=== PATIENT | male | born 1965 | race Caucasian/White ===

== ENCOUNTER 2018-11-30 10:26 | Inpatient (IN) | payer MEDICAID, OTHER ==
[~2018-11-30] VITALS: Ht 182.9 cm; Wt 107.1 kg
--- NOTE | 2018-11-30 10:44 | PHYS DOC ---
Adult General Chief Complaint Chief Complaint: SYNCOPE HPI HPI Patient is a 53 year old male with history of hypertension who presents to the ED today to be evaluated for a syncope episode. Patient was in the hospital in room 521 visiting the sister who is hospitalized for multiple issues including heart condition, he states he became shaky and believes passed out. He states the next thing he knew it they were wheeling him to the emergency room. Patient is complaining of nausea. Denies any dizziness. He appears diaphoretic. He states he has had similar symptoms a couple times before. (SANCHEZ ALLEN APRN) Review of Systems Review of Systems Constitutional: Denies fever or chills [] Eyes: Denies change in visual acuity, redness, or eye pain [] HENT: Denies nasal congestion or sore throat [] Respiratory: Denies cough or shortness of breath [] Cardiovascular: No additional information not addressed in HPI [] GI: Denies abdominal pain, nausea, vomiting, bloody stools or diarrhea [] : Denies dysuria or hematuria [] Musculoskeletal: Denies back pain or joint pain [] Integument: Denies rash or skin lesions [] Neurologic: Report syncope. Denies headache, focal weakness or sensory changes [] All other systems were reviewed and found to be within normal limits, except as documented in this note. (SANCHEZ ALLEN APRN) Current Medications Current Medications Current Medications Medications (Trade) Dose Ordered Sig/Ce Start Time Stop Time Status Last Admin Dose Admin Info (CONTRAST GIVEN -- Rx MONITORING) 1 each PRN DAILY PRN 11/30/18 11:30 12/02/18 11:29 Iohexol (Omnipaque 350 Mg/ml) 90 ml 1X ONCE 11/30/18 11:30 11/30/18 11:31 Meclizine HCl (Antivert) 25 mg 1X ONCE 11/30/18 11:15 11/30/18 11:16 DC 11/30/18 11:13 25 MG Ondansetron HCl (Zofran) 4 mg 1X ONCE 11/30/18 11:30 11/30/18 11:31 Sodium Chloride 1,000 ml @ 1,000 mls/hr 1X ONCE 11/30/18 12:00 11/30/18 12:59 (RUBY FLORIAN MD) Allergies Allergies Allergies Coded Allergies Type Severity Reaction Last Updated Verified No Known Drug Allergies 11/30/18 No (RUBY FLORIAN MD) Physical Exam Physical Exam Constitutional: Well developed, well nourished, no acute distress, non-toxic appearance. [] HENT: Normocephalic, atraumatic, bilateral external ears normal, oropharynx moist, no oral exudates, nose normal. [] Eyes: PERRLA, EOMI, conjunctiva normal, no discharge. [] Neck: Normal range of motion, no tenderness, supple, no stridor. [] Cardiovascular:Appears diaphoretic. Heart rate regular rhythm, no murmur [] Lungs & Thorax: Bilateral breath sounds clear to auscultation [] Abdomen: Bowel sounds normal, soft, no tenderness, no masses, no pulsatile masses. [] Skin: Warm, dry, no erythema, no rash. [] Back: No tenderness, no CVA tenderness. [] Extremities: No tenderness, no cyanosis, no clubbing, ROM intact, no edema. [] Neurologic: Alert and oriented X 3, normal motor function, normal sensory function, no focal deficits noted. Cranial nerves II-XII intact Psychologic: Affect normal, judgement normal, mood normal. [] (SANCHEZ ALLEN APRN) Current Patient Data Vital Signs Vital Signs Date Time Temp Pulse Resp B/P (MAP) Pulse Ox O2 Delivery O2 Flow Rate FiO2 11/30/18 10:47 98.1 67 16 146/75 (98) 99 Room Air 98.1 (RUBY FLORIAN MD) Lab Values Laboratory Tests Test 11/30/18 10:34 11/30/18 10:40 Glucose (Fingerstick) 148 mg/dL (70-99) H White Blood Count 15.6 x10^3/uL (4.0-11.0) H Red Blood Count 4.69 x10^6/uL (4.30-5.70) Hemoglobin 15.4 g/dL (13.0-17.5) Hematocrit 44.2 % (39.0-53.0) Mean Corpuscular Volume 94 fL (79-100) Mean Corpuscular Hemoglobin 33 pg (25-35) Mean Corpuscular Hemoglobin Concent 35 g/dL (31-37) Red Cell Distribution Width 12.7 % (11.5-14.5) Platelet Count 313 x10^3/uL (140-400) Neutrophils (%) (Auto) 61 % (31-73) Lymphocytes (%) (Auto) 25 % (24-48) Monocytes (%) (Auto) 12 % (0-9) H Eosinophils (%) (Auto) 2 % (0-3) Basophils (%) (Auto) 1 % (0-3) Neutrophils # (Auto) 9.5 x10^3uL (1.8-7.7) H Lymphocytes # (Auto) 3.9 x10^3/uL (1.0-4.8) Monocytes # (Auto) 1.8 x10^3/uL (0.0-1.1) H Eosinophils # (Auto) 0.3 x10^3/uL (0.0-0.7) Basophils # (Auto) 0.2 x10^3/uL (0.0-0.2) Prothrombin Time 12.1 SEC (11.7-14.0) Prothrombin Time INR 0.9 (0.8-1.1) Sodium Level 135 mmol/L (136-145) L Potassium Level 3.5 mmol/L (3.5-5.1) Chloride Level 98 mmol/L (98-107) Carbon Dioxide Level 22 mmol/L (21-32) Anion Gap 15 (6-14) H Blood Urea Nitrogen 11 mg/dL (8-26) Creatinine 0.9 mg/dL (0.7-1.3) Estimated GFR (Cockcroft-Gault) 87.6 BUN/Creatinine Ratio 12 (6-20) Glucose Level 151 mg/dL (70-99) H Calcium Level 8.7 mg/dL (8.5-10.1) Magnesium Level 1.9 mg/dL (1.8-2.4) Total Bilirubin 0.7 mg/dL (0.2-1.0) Aspartate Amino Transferase (AST) 20 U/L (15-37) Alanine Aminotransferase (ALT) 30 U/L (16-63) Alkaline Phosphatase 88 U/L (46-116) Troponin I Quantitative < 0.017 ng/mL (0.000-0.055) Total Protein 8.0 g/dL (6.4-8.2) Albumin 3.8 g/dL (3.4-5.0) Albumin/Globulin Ratio 0.9 (1.0-1.7) L Lipase 173 U/L (73-393) Laboratory Tests 11/30/18 10:40 Laboratory Tests 11/30/18 10:40 (RUBY FLORIAN MD) EKG EKG 10:[address] Florian sinus rhythm with non specific ST changes in V2 with no Ischemic changes. [] Repeat EKG at 11:[address] Florian sinus rhythm with non specific ST changes in V2 with no Ischemic changes. [] (SANCHEZ ALLEN APRN) Radiology/Procedures Radiology/Procedures []PROCEDURE: CT HEAD WO CONTRAST CT HEAD WO CONTRAST Indication: Syncope. Exposure: One or more of the following individualized dose reduction techniques were utilized for this examination: 1. Automated exposure control 2. Adjustment of the mA and/or kV according to patient size 3. Use of iterative reconstruction technique. Technique: Standard imaging without intravenous contrast. No evidence of acute intracranial, mass effect, midline shift or abnormal extra-axial fluid collection. Ventricles and sulci are symmetric. Kamara-white matter distinction is intact. The orbits are symmetric. No prominent scalp swelling. The partially visualized sinuses appear clear. No evidence of acute skull abnormality. IMPRESSION: No evidence of acute intracranial hemorrhage. If there is concern for infarction, consider MR brain. Electronically signed by: Jim Clinton MD (11/30/2018 11:41 AM) [facility] DICTATED and SIGNED BY: JIM CLINTON MD DATE: 11/30/18 1141 PROCEDURE: PORTABLE CHEST 1V PORTABLE CHEST 1V History: Syncope.. No comparison. Heart size is not enlarged. No evidence of pneumothorax, pleural effusion or consolidating infiltrate. There are diffuse interstitial markings throughout both lungs. No lobar consolidation. IMPRESSION: Diffuse interstitial opacities, may be chronic fibrosis. Component of mild edema or pneumonitis difficult to exclude without prior studies. No lobar consolidation. Electronically signed by: Jim Clinton MD (11/30/2018 11:18 AM) [facility] DICTATED and SIGNED BY: JIM CLINTON MD DATE: 11/30/18 1118 PROCEDURE: CT ANGIOGRAPHY CHEST CT ANGIOGRAPHY CHEST Indication: Syncope. Diaphoretic. . Technique: After intravenous contrast administration, CT imaging was performed of the chest. MIP reconstructions were obtained. Exposure: One or more of the following individualized dose reduction techniques were utilized for this examination: 1. Automated exposure control 2. Adjustment of the mA and/or kV according to patient size 3. Use of iterative reconstruction technique. Findings: No evidence of a pulmonary embolism. Mild pulsatility artifact at the ascending aorta. No evidence of aortic aneurysm or definite dissection. Proximal great vessels are patent. Thyroid is partially seen and appears symmetric. No significant pathologic lymph node enlargement. No pericardial effusion. No evidence of pleural effusion. There is mild linear markings lungs, particularly the dependent right lung, compatible with mild atelectasis or fibrosis. Slightly more nodular region in the posterior right lung on axial image 51, measures about. Small peripheral lucencies at the posterior upper lobes bilaterally likely mild paraseptal emphysema versus honeycombing. Trachea and central airways are grossly patent. There are degenerative changes of the spine. Vertebral body height and alignment are maintained. Limited scans through the upper abdomen demonstrate no acute abnormality. The left adrenal is slightly thickened morphology without a discrete mass. IMPRESSION: 1. No evidence of pulmonary embolism. 2. Mild linear opacities in both lungs, compatible with mild fibrosis or atelectasis. Slightly more nodular component in the right posterior lung likely represents a component of this process, but as per revised Fleischner guidelines, could consider follow-up CT chest in 12 months if patient is high risk. 3. Mild posterior peripheral subpleural honeycombing or paraseptal emphysema in the upper lobes. Electronically signed by: Jim Clinton MD (11/30/2018 12:10 PM) [facility] DICTATED and SIGNED BY: JIM CLINTON MD DATE: 11/30/18 1210 (SANCHEZ ALLEN APRN) Course & Med Decision Making Course & Med Decision Making Pertinent Labs and Imaging studies reviewed. (See chart for details) This is a 53-year-old male patient presenting to the ED today to be evaluated after experiencing a syncope episode while visiting the sister in room 521. Patient arrives in the ED diaphoretic. He is complaining of nausea. Denies any chest pain or shortness of breath. Denies any dizziness. 11:13 called into the room by nursing staff, they state patient had his eyes rolling back, face turned to the left and was shaking for 10 seconds. After that he started vomiting. I went to reassess him and he was vomiting. Zofran given. IV fluids infusing. Patient continues to deny any chest pain----Follow up on this, Carmita the [facility] states this patient is her biological dad but they do not have much of a relationship. She states she walked into the room when patient started rolling his eyes back, turned his face to the left and started shaking. 11:25 Dr. Florian evaluated patient. CTA chest is negative. Admitted to [facility]-Dr. Florian shared EKG with Dr. Christian. (SANCHEZ ALLEN APRN) Course & Med Decision Making ER PHYSICIAN ATTENDING NOTE:. Patient denies any pain. Does admit to some nausea at this time. Denies chest pain shortness of breath but was reported to be having labored breathing on the floor. PHYSICAL EXAM: CONSTITUTIONAL: Well developed, well nourished HEAD: normocephalic, atraumatic EENT: PERRL, EOMI. Conjunctivae normal color, sclerae non-icteric; moist mucous membranes. NECK: Supple, non-tender; no meningismus. LUNGS: Lungs CTA, breathing even and unlabored. Normal air movement. HEART: Regular rate and rhythm, no murmur CHEST: No deformity; non-tender ABDOMEN: The abdomen is soft, and non-tender, no masses or bruits. Normal bowel sounds are present. EXTREM: Normal ROM; no deformity, no calf tenderness. Normal pulses palpable in all extremities. There is no pedal edema. SKIN: No rash. Patient does exhibit diaphoresis NEURO: Alert; normal speech and cognition; CN's grossly intact; strength grossly intact without focal deficit. BACK: No CVA TTP. I have personally seen and examined the patient, and agree with the history, physical exam, and plan, as documented by mid-level provider (RUBY FLORIAN MD) Dragon Disclaimer Dragon Disclaimer This electronic medical record was generated, in whole or in part, using a voice recognition dictation system. (SANCHEZ ALLEN APRN) Departure Departure Impression: Primary Impression: Syncope Additional Impression: Abnormal EKG Disposition: ADMITTED INPATIENT Condition: STABLE Referrals: UNKNOWN PCP NAME (PCP) Problem Qualifiers Primary Impression: Syncope Syncope type: unspecified Qualified Codes: R55 - Syncope and collapse SANCHEZ ALLEN APRN Nov 30, 2018 10:44 RUBY FLORIAN MD Nov 30, 2018 11:28
[2018-11-30 11:00] LABS: BASO # 0.2 x10^3/uL (0.0-0.2); BASO % 1 % (0-3); EOS # 0.3 x10^3/uL (0.0-0.7); EOS % 2 % (0-3); HEMATOCRIT 44.2 % (39.0-53.0); HEMOGLOBIN 15.4 g/dL (13.0-17.5); LYMPH # 3.9 x10^3/uL (1.0-4.8); LYMPH % 25 % (24-48); MEAN CORPUSCULAR HEMOGLOBIN 33 pg (25-35); MEAN CORPUSCULAR HGB CONC 35 g/dL (31-37); MEAN CORPUSCULAR VOLUME 94 fL (79-100); MONO # 1.8 x10^3/uL (0.0-1.1); MONO % 12 % (0-9); NEUT # 9.5 x10^3uL (1.8-7.7); NEUT % 61 % (31-73); PLATELET COUNT 313 x10^3/uL (140-400); RED BLOOD COUNT 4.69 x10^6/uL (4.30-5.70); RED CELL DISTRIBUTION WIDTH 12.7 % (11.5-14.5); WHITE BLOOD COUNT 15.6 x10^3/uL (4.0-11.0)
[2018-11-30] MEDS ORDERED: IV NORMAL SALINE 1000ML BAG 1,000 ML IV ONE ×3 (11:00→13:00)
[2018-11-30 11:14] LABS: CALCIUM 8.7 mg/dL (8.5-10.1); CREATININE 0.9 mg/dL (0.7-1.3); GFR 87.6; POTASSIUM 3.5 mmol/L (3.5-5.1); PROTHROMBIN TIME PATIENT 12.1 SEC (11.7-14.0)
[2018-11-30] MEDS ORDERED: MECLIZINE HCL 12.5 MG TABLET. PO ONE (11:15)
[2018-11-30] MEDS ORDERED: ONDANSETRON PF 4 MG/2 ML VIAL. IV ONE ×2 (11:15→11:30)
[2018-11-30 11:20] LABS: ALBUMIN 3.8 g/dL (3.4-5.0); ALBUMIN/GLOBULIN RATIO 0.9 (1.0-1.7); MAGNESIUM 1.9 mg/dL (1.8-2.4); TOTAL BILIRUBIN 0.7 mg/dL (0.2-1.0)
--- NOTE | 2018-11-30 11:21 | RAD ---
PORTABLE CHEST 1V History: Syncope.. No comparison. Heart size is not enlarged. No evidence of pneumothorax, pleural effusion or consolidating infiltrate. There are diffuse interstitial markings throughout both lungs. No lobar consolidation. IMPRESSION: Diffuse interstitial opacities, may be chronic fibrosis. Component of mild edema or pneumonitis difficult to exclude without prior studies. No lobar consolidation. Electronically signed by: Jim Clinton MD (11/30/2018 11:18 AM) [facility]
[2018-11-30] MEDS ORDERED: CONTRAST GIVEN. MC PRN (11:30)
[2018-11-30] MEDS ORDERED: IOHEXOL 350 MG/ML 100 ML VIAL. IV ONE (11:30)
--- NOTE | 2018-11-30 11:44 | RAD ---
CT HEAD WO CONTRAST Indication: Syncope. Exposure: One or more of the following individualized dose reduction techniques were utilized for this examination: 1. Automated exposure control 2. Adjustment of the mA and/or kV according to patient size 3. Use of iterative reconstruction technique. Technique: Standard imaging without intravenous contrast. No evidence of acute intracranial, mass effect, midline shift or abnormal extra-axial fluid collection. Ventricles and sulci are symmetric. Kamara-white matter distinction is intact. The orbits are symmetric. No prominent scalp swelling. The partially visualized sinuses appear clear. No evidence of acute skull abnormality. IMPRESSION: No evidence of acute intracranial hemorrhage. If there is concern for infarction, consider MR brain. Electronically signed by: Jim Clinton MD (11/30/2018 11:41 AM) [facility]
--- NOTE | 2018-11-30 12:06 | EKG ---
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
--- NOTE | 2018-11-30 12:13 | RAD ---
CT ANGIOGRAPHY CHEST Indication: Syncope. Diaphoretic. . Technique: After intravenous contrast administration, CT imaging was performed of the chest. MIP reconstructions were obtained. Exposure: One or more of the following individualized dose reduction techniques were utilized for this examination: 1. Automated exposure control 2. Adjustment of the mA and/or kV according to patient size 3. Use of iterative reconstruction technique. Findings: No evidence of a pulmonary embolism. Mild pulsatility artifact at the ascending aorta. No evidence of aortic aneurysm or definite dissection. Proximal great vessels are patent. Thyroid is partially seen and appears symmetric. No significant pathologic lymph node enlargement. No pericardial effusion. No evidence of pleural effusion. There is mild linear markings lungs, particularly the dependent right lung, compatible with mild atelectasis or fibrosis. Slightly more nodular region in the posterior right lung on axial image 51, measures about. Small peripheral lucencies at the posterior upper lobes bilaterally likely mild paraseptal emphysema versus honeycombing. Trachea and central airways are grossly patent. There are degenerative changes of the spine. Vertebral body height and alignment are maintained. Limited scans through the upper abdomen demonstrate no acute abnormality. The left adrenal is slightly thickened morphology without a discrete mass. IMPRESSION: 1. No evidence of pulmonary embolism. 2. Mild linear opacities in both lungs, compatible with mild fibrosis or atelectasis. Slightly more nodular component in the right posterior lung likely represents a component of this process, but as per revised Fleischner guidelines, could consider follow-up CT chest in 12 months if patient is high risk. 3. Mild posterior peripheral subpleural honeycombing or paraseptal emphysema in the upper lobes. Electronically signed by: Jim Clinton MD (11/30/2018 12:10 PM) [facility]
[2018-11-30 13:00] LABS: BILIRUBIN,URINE NEGATIVE (NEG); CLARITY,URINE CLEAR; COLOR,URINE YELLOW; NITRITE,URINE NEGATIVE (NEG); PROTEIN,URINE NEGATIVE (NEG-TRACE); UROBILINOGEN,URINE 0.2 mg/dL (0.2 mg/dL)
[2018-11-30] MEDS ORDERED: ACETAMINOPHEN 325 MG TABLET. PO PRN (13:00)
[2018-11-30] MEDS ORDERED: PROCHLORPERAZINE 10 MG/2 ML VIAL. IV PRN (13:00)
[2018-11-30] MEDS ORDERED: ONDANSETRON PF 4 MG/2 ML VIAL. IV PRN (13:00)
[2018-11-30 13:07] LABS: BARBITURATES NEG (NEG); BENZODIAZEPINES NEG (NEG); CANNABINOIDS NEG (NEG); COCAINE NEG (NEG); METHADONE NEG (NEG); OPIATES NEG (NEG); PHENCYCLIDINE NEG (NEG)
[2018-11-30 13:09] LABS: BACTERIA,URINE 0 /HPF (0-FEW); HYALINE CASTS, URINE FEW /HPF; RBC,URINE 0 /HPF (0-2); WBC,URINE 0 /HPF (0-4)
[2018-11-30 13:10] LABS: AMPHETAMINE/METHAMPHETAMINE NEG (NEG)
[2018-11-30 14:01] VITALS: BP 178/97
[2018-11-30] MEDS ORDERED: LISI-130 PO (14:35)
[2018-11-30] MEDS ORDERED: ATOR20TA58 PO (14:35)
[2018-11-30] MEDS ORDERED: BISO1TAB7 PO (14:35)
--- NOTE | 2018-11-30 15:59 | PDOC1 ---
History and Physical Date of Admission Date of Admission DATE: 11/30/18 TIME: 15:58 Source Source: Caregiver, Chart review, Patient History of Present Illness History of Present Illness MR. Calloway is a 53 year old male with history of hypertension who presents to the ED today to be evaluated for a syncope episode. he was visiting his ill sister in this hospital, was seated, then felt "off for a second" then passed out. witnessed LOC, no injury as was seated. prior similar event in 2006, [facility], new diagnosis of Htn, has been on meds since, no event. he has no real prodrome and no after effect, but did feel shaky for the second before LOC> Past Medical History Cardiovascular: HTN, Hyperlipidemia Pulmonary: No pertinent hx GI: No pertinent hx Heme/Onc: No pertinent hx Hepatobiliary: No pertinent hx Renal/: No pertinent hx Past Surgical History Past Surgical History: No pertinent history Family History Family History: Asthma, Other Social History Smoke: <1 pack per day ALCOHOL: rare Drugs: None Current Problem List Problem List Problems Medical Problems: (1) Abnormal EKG Status: Acute (2) Syncope Status: Acute Current Medications Current Medications Current Medications Sodium Chloride 1,000 ml @ 1,000 mls/hr 1X ONCE IV Last administered on 11/30/18at 11:13; Start 11/30/18 at 11:00; Stop 11/30/18 at 11:59; Status DC Sodium Chloride 1,000 ml @ 1,000 mls/hr 1X ONCE IV Last administered on 11/30/18at 11:59; Start 11/30/18 at 12:00; Stop 11/30/18 at 12:59; Status DC Meclizine HCl (Antivert) 25 mg 1X ONCE PO Last administered on 11/30/18at 11:13; Start 11/30/18 at 11:15; Stop 11/30/18 at 11:16; Status DC Ondansetron HCl (Zofran) 4 mg 1X ONCE IV Last administered on 11/30/18at 11:13; Start 11/30/18 at 11:15; Stop 11/30/18 at 11:16; Status DC Ondansetron HCl (Zofran) 4 mg 1X ONCE IV ; Start 11/30/18 at 11:30; Stop 11/30/18 at 11:31; Status DC Iohexol (Omnipaque 350 Mg/ml) 90 ml 1X ONCE IV Last administered on 11/30/18at 11:41; Start 11/30/18 at 11:30; Stop 11/30/18 at 11:31; Status DC Info (CONTRAST GIVEN -- Rx MONITORING) 1 each PRN DAILY PRN MC SEE COMMENTS; Start 11/30/18 at 11:30; Stop 12/02/18 at 11:29 Ondansetron HCl (Zofran) 4 mg PRN Q8HRS PRN IV NAUSEA/VOMITING; Start 11/30/18 at 13:00; Stop 12/01/18 at 12:59 Acetaminophen (Tylenol) 650 mg PRN Q4HRS PRN PO FEVER; Start 11/30/18 at 13:00; Stop 12/01/18 at 12:59 Sodium Chloride 1,000 ml @ 75 mls/hr 1X ONCE IV ; Start 11/30/18 at 13:00; Stop 12/01/18 at 02:19 Prochlorperazine Edisylate (Compazine) 10 mg TID PRN PRN IV NAUSEA Last administered on 11/30/18at 13:02; Start 11/30/18 at 13:00 Atorvastatin Calcium (Lipitor) 20 mg DAILY PO ; Start 11/30/18 at 16:30 Lisinopril (Prinivil) 40 mg DAILY PO ; Start 11/30/18 at 16:30 Atenolol (Tenormin) 100 mg DAILY PO ; Start 11/30/18 at 16:30 Amlodipine Besylate (Norvasc) 2.5 mg DAILY PO ; Start 11/30/18 at 16:30 Potassium Chloride (Klor-Con) 40 meq 1X ONCE PO ; Start 11/30/18 at 16:15; Stop 11/30/18 at 16:16 Hydrochlorothiazide (Hydrodiuril) 6.25 mg DAILY PO ; Start 11/30/18 at 16:30 Active Scripts Active Reported Lisinopril 40 Mg Tablet 1 Tab PO DAILY Atorvastatin Calcium 20 Mg Tablet 1 Tab PO DAILY Bisoprolol-Hctz 10-6.25 Mg Tab (Bisoprolol Fumarate/Hctz) 1 Each Tablet 1 Tab PO DAILY Allergies Allergies: Coded Allergies: No Known Drug Allergies (Unverified , 11/30/18) ROS General: No: Chills, Night Sweats, Fatigue, Malaise, Appetite, Other PSYCHOLOGICAL ROS: No: Anxiety, Behavioral Disorder, Concentration difficultie, Decreased libido, Depression, Disorientation, Hallucinations, Hostility, Irritablity, Memory difficulties, Mood Swings, Obsessive thoughts, Other Eyes: Yes [place]; No Blurry vision, No Decreased vision, No Double vision, No Dry eyes, No Excessive tearing, No Eye Pain, No Itchy Eyes, No Loss of vision, No Photophobia, No Uses contacts, No Uses glasses, No Other HEENT: No: Heacaches, Visual Changes, Hearing change, Nasal congestion, Nasal discharge, Oral lesions, Sinus pain, Sore Throat, Epistaxis, Sneezing, Snoring, Tinnitus, Vertigo, Vocal changes, Other Respiratory: No: Cough, Hemoptysis, Orthopnea, Pleuritic Pain, Shortness of breath, SOB with excertion, Sputum Changes, Stridor, Tachypnea, Wheezing, Other Cardiovascular: No Chest Pain, No Palpitations, No Orthopnea, No Paroxysmal No c. Dyspnea, No Edema, No Lt Headedness, No Other Gastrointestinal: No Nausea, No Vomiting, No Abdominal Pain, No Diarrhea, No Constipation, No Melena, No Hematochezia, No Other Genitourinary: No Dysuria, No Frequency, No Incontinence, No Hematuria, No Retention, No Discharge, No Urgency, No Pain, No Flank Pain, No Other, No , No , No , No , No , No , No Musculoskeletal: Yes Joint Stiffness; No Gait Disturbance, No Joint Pain, No Joint Swelling, No Muscle Pain, No Muscular Weakness, No Pain In:, No Swelling In:, No Other Neurological: No Behavorial Changes, No Bowel/Bladder ControlChng, No Confusion, No Dizziness, No Gait Disturbance, No Headaches, No Impaired Coord/balance, No Memory Loss, No Numbness/Tingling, No Seizures, No Speech Problems, No Tremors, No Visual Changes, No Weakness, No Other Skin: Yes Dry Skin; No Eczema, No Hair Changes, No Lumps, No Mole Changes, No Mottling, No Nail Changes, No Pruritus, No Rash, No Skin Lesion Changes, No Other, No Acne Physical Exam General: Alert, Cooperative, No acute distress HEENT: PERRLA Lungs: Clear to auscultation, Normal air movement Heart: S1S2, RRR, no gallops Abdomen: Normal bowel sounds, Soft Extremities: No clubbing, No edema, Normal pulses Skin: No rashes, No breakdown, No significant lesion Neuro: Normal gait, Normal speech, Sensation intact, Cranial nerves 3-12 NL Psych/Mental Status: Mental status NL, Mood NL Vitals Vitals Vital Signs Date Time Temp Pulse Resp B/P (MAP) Pulse Ox O2 Delivery O2 Flow Rate FiO2 11/30/18 15:10 Room Air 11/30/18 14:01 97.6 78 18 178/97 (124) 99 97.6 Labs Labs Laboratory Tests Test 11/30/18 10:34 11/30/18 10:40 11/30/18 12:50 11/30/18 13:30 Glucose (Fingerstick) 148 mg/dL (70-99) White Blood Count 15.6 x10^3/uL (4.0-11.0) Red Blood Count 4.69 x10^6/uL (4.30-5.70) Hemoglobin 15.4 g/dL (13.0-17.5) Hematocrit 44.2 % (39.0-53.0) Mean Corpuscular Volume 94 fL (79-100) Mean Corpuscular Hemoglobin 33 pg (25-35) Mean Corpuscular Hemoglobin Concent 35 g/dL (31-37) Red Cell Distribution Width 12.7 % (11.5-14.5) Platelet Count 313 x10^3/uL (140-400) Neutrophils (%) (Auto) 61 % (31-73) Lymphocytes (%) (Auto) 25 % (24-48) Monocytes (%) (Auto) 12 % (0-9) Eosinophils (%) (Auto) 2 % (0-3) Basophils (%) (Auto) 1 % (0-3) Neutrophils # (Auto) 9.5 x10^3uL (1.8-7.7) Lymphocytes # (Auto) 3.9 x10^3/uL (1.0-4.8) Monocytes # (Auto) 1.8 x10^3/uL (0.0-1.1) Eosinophils # (Auto) 0.3 x10^3/uL (0.0-0.7) Basophils # (Auto) 0.2 x10^3/uL (0.0-0.2) Prothrombin Time 12.1 SEC (11.7-14.0) Prothromb Time International Ratio 0.9 (0.8-1.1) Sodium Level 135 mmol/L (136-145) Potassium Level 3.5 mmol/L (3.5-5.1) Chloride Level 98 mmol/L (98-107) Carbon Dioxide Level 22 mmol/L (21-32) Anion Gap 15 (6-14) Blood Urea Nitrogen 11 mg/dL (8-26) Creatinine 0.9 mg/dL (0.7-1.3) Estimated GFR (Cockcroft-Gault) 87.6 BUN/Creatinine Ratio 12 (6-20) Glucose Level 151 mg/dL (70-99) Calcium Level 8.7 mg/dL (8.5-10.1) Magnesium Level 1.9 mg/dL (1.8-2.4) Total Bilirubin 0.7 mg/dL (0.2-1.0) Aspartate Amino Transf (AST/SGOT) 20 U/L (15-37) Alanine Aminotransferase (ALT/SGPT) 30 U/L (16-63) Alkaline Phosphatase 88 U/L (46-116) Creatine Kinase 258 U/L (39-308) Creatine Kinase MB (Mass) 3.3 ng/mL (0.0-3.6) Creatine Kinase MB Relative Index 1.3 % (0-4) Troponin I Quantitative < 0.017 ng/mL (0.000-0.055) < 0.017 ng/mL (0.000-0.055) DR-Rfl-U-Type Natriuretic Peptide 130 pg/mL (0-124) Total Protein 8.0 g/dL (6.4-8.2) Albumin 3.8 g/dL (3.4-5.0) Albumin/Globulin Ratio 0.9 (1.0-1.7) Lipase 173 U/L (73-393) Thyroid Stimulating Hormone (TSH) 2.224 uIU/mL (0.358-3.74) Urine Collection Type Unknown Urine Color Yellow Urine Clarity Clear Urine pH 7.0 Urine Specific [place] >=1.030 Urine Protein Negative mg/dL (NEG-TRACE) Urine Glucose (UA) Negative mg/dL (NEG) Urine Ketones (Stick) Negative mg/dL (NEG) Urine Blood Negative (NEG) Urine Nitrite Negative (NEG) Urine Bilirubin Negative (NEG) Urine Urobilinogen Dipstick 0.2 mg/dL (0.2 mg/dL) Urine Leukocyte Esterase Negative (NEG) Urine RBC 0 /HPF (0-2) Urine WBC 0 /HPF (0-4) Urine Bacteria 0 /HPF (0-FEW) Urine Hyaline Casts Few /HPF Urine Mucus Slight /LPF Urine Opiates Screen Neg (NEG) Urine Methadone Screen Neg (NEG) Urine Barbiturates Neg (NEG) Urine Phencyclidine Screen Neg (NEG) Urine Amphetamine/Methamphetamine Neg (NEG) Urine Benzodiazepines Screen Neg (NEG) Urine Cocaine Screen Neg (NEG) Urine Cannabinoids Screen Neg (NEG) Urine Ethyl Alcohol Neg (NEG) Laboratory Tests Test 11/30/18 10:34 11/30/18 10:40 11/30/18 12:50 11/30/18 13:30 Glucose (Fingerstick) 148 mg/dL (70-99) White Blood Count 15.6 x10^3/uL (4.0-11.0) Red Blood Count 4.69 x10^6/uL (4.30-5.70) Hemoglobin 15.4 g/dL (13.0-17.5) Hematocrit 44.2 % (39.0-53.0) Mean Corpuscular Volume 94 fL (79-100) Mean Corpuscular Hemoglobin 33 pg (25-35) Mean Corpuscular Hemoglobin Concent 35 g/dL (31-37) Red Cell Distribution Width 12.7 % (11.5-14.5) Platelet Count 313 x10^3/uL (140-400) Neutrophils (%) (Auto) 61 % (31-73) Lymphocytes (%) (Auto) 25 % (24-48) Monocytes (%) (Auto) 12 % (0-9) Eosinophils (%) (Auto) 2 % (0-3) Basophils (%) (Auto) 1 % (0-3) Neutrophils # (Auto) 9.5 x10^3uL (1.8-7.7) Lymphocytes # (Auto) 3.9 x10^3/uL (1.0-4.8) Monocytes # (Auto) 1.8 x10^3/uL (0.0-1.1) Eosinophils # (Auto) 0.3 x10^3/uL (0.0-0.7) Basophils # (Auto) 0.2 x10^3/uL (0.0-0.2) Prothrombin Time 12.1 SEC (11.7-14.0) Prothromb Time International Ratio 0.9 (0.8-1.1) Sodium Level 135 mmol/L (136-145) Potassium Level 3.5 mmol/L (3.5-5.1) Chloride Level 98 mmol/L (98-107) Carbon Dioxide Level 22 mmol/L (21-32) Anion Gap 15 (6-14) Blood Urea Nitrogen 11 mg/dL (8-26) Creatinine 0.9 mg/dL (0.7-1.3) Estimated GFR (Cockcroft-Gault) 87.6 BUN/Creatinine Ratio 12 (6-20) Glucose Level 151 mg/dL (70-99) Calcium Level 8.7 mg/dL (8.5-10.1) Magnesium Level 1.9 mg/dL (1.8-2.4) Total Bilirubin 0.7 mg/dL (0.2-1.0) Aspartate Amino Transf (AST/SGOT) 20 U/L (15-37) Alanine Aminotransferase (ALT/SGPT) 30 U/L (16-63) Alkaline Phosphatase 88 U/L (46-116) Creatine Kinase 258 U/L (39-308) Creatine Kinase MB (Mass) 3.3 ng/mL (0.0-3.6) Creatine Kinase MB Relative Index 1.3 % (0-4) Troponin I Quantitative < 0.017 ng/mL (0.000-0.055) < 0.017 ng/mL (0.000-0.055) SG-Bra-S-Type Natriuretic Peptide 130 pg/mL (0-124) Total Protein 8.0 g/dL (6.4-8.2) Albumin 3.8 g/dL (3.4-5.0) Albumin/Globulin Ratio 0.9 (1.0-1.7) Lipase 173 U/L (73-393) Thyroid Stimulating Hormone (TSH) 2.224 uIU/mL (0.358-3.74) Urine Collection Type Unknown Urine Color Yellow Urine Clarity Clear Urine pH 7.0 Urine Specific [place] >=1.030 Urine Protein Negative mg/dL (NEG-TRACE) Urine Glucose (UA) Negative mg/dL (NEG) Urine Ketones (Stick) Negative mg/dL (NEG) Urine Blood Negative (NEG) Urine Nitrite Negative (NEG) Urine Bilirubin Negative (NEG) Urine Urobilinogen Dipstick 0.2 mg/dL (0.2 mg/dL) Urine Leukocyte Esterase Negative (NEG) Urine RBC 0 /HPF (0-2) Urine WBC 0 /HPF (0-4) Urine Bacteria 0 /HPF (0-FEW) Urine Hyaline Casts Few /HPF Urine Mucus Slight /LPF Urine Opiates Screen Neg (NEG) Urine Methadone Screen Neg (NEG) Urine Barbiturates Neg (NEG) Urine Phencyclidine Screen Neg (NEG) Urine Amphetamine/Methamphetamine Neg (NEG) Urine Benzodiazepines Screen Neg (NEG) Urine Cocaine Screen Neg (NEG) Urine Cannabinoids Screen Neg (NEG) Urine Ethyl Alcohol Neg (NEG) VTE Prophylaxis Ordered VTE Prophylaxis Devices: No VTE Pharmacological Prophylaxi: No Assessment/Plan Assessment/Plan syncope, vagal likely from situation, r/o acute, tele, cv consult, repeat labs, add K+ htn, poor control, add norvasc obesity, BMI 32 lipids, cont home meds tobacco use disorder, cessation discussed TITA TENORIO MD Nov 30, 2018 15:59
--- NOTE | 2018-11-30 15:59 | PDOC2 ---
RASHI COSTA PRINCIPAL ARCHAEOLOGIST 11/30/18 1559: CARDIAC CONSULT DATE OF CONSULT Date of Consult DATE: 11/30/18 TIME: 15:52 REASON FOR CONSULT Reason for Consult: abnormal EKG REFERRING PHYSICIAN Referring Physician: Nilda SOURCE Source: Chart review, Patient HISTORY OF PRESENT ILLNESS HISTORY OF PRESENT ILLNESS This is a a pleasant 53 yo male admitted for complains of passing out. He took his 2 BP meds this morning but did not eat breakfast nor lunch because of work and hurrying up to see his sister in this hospital ans stressed out as she is not doing well. He also drank just 1 cup of coffee this morning and no other fluids. He was sitting on a chair in his siters room when he felt weird and the next thing he remembered was someone trying to wake him up. He felt woozy, shaky, trying to figure where he was at and eventually got nauseated. There was no vertigo, no flushed feeling, chest pain, SOA, nor palpitations. No recent falls, injury or infections. The last time that he passed out was 8 yrs ago. No RUIZ, visual or auditory disturbances, no noted slurred speech or facial droop. PAST MEDICAL HISTORY Cardiovascular: HTN, Hyperlipidemia Pulmonary: No pertinent hx CENTRAL NERVOUS SYSTEM: Other (No pertinent history) GI: No pertinent hx Heme/Onc: No pertinent hx Hepatobiliary: No pertinent hx Psych: No pertinent hx Musculoskeletal: Osteoarthritis Rheumatologic: No pertinent hx Infectious disease: No pertinent hx ENT: No pertinent hx Renal/: No pertinent hx Endocrine: No pertinent hx Dermatology: No pertinent hx PAST SURGICAL HISTORY Past Surgical History: No pertinent history FAMILY HISTORY Family History: Heart Disease (father) SOCIAL HISTORY Smoke: <1 pack per day (>10 yrs) ALCOHOL: occassional Drugs: None Lives: with Family CURRENT MEDICATIONS CURRENT MEDICATIONS Current Medications Medications (Trade) Dose Ordered Sig/Ce Route PRN Reason Start Time Stop Time Status Last Admin Dose Admin Sodium Chloride 1,000 ml @ 1,000 mls/hr 1X ONCE IV 11/30/18 11:00 11/30/18 11:59 DC 11/30/18 11:13 Sodium Chloride 1,000 ml @ 1,000 mls/hr 1X ONCE IV 11/30/18 12:00 11/30/18 12:59 DC 11/30/18 11:59 Meclizine HCl (Antivert) 25 mg 1X ONCE PO 11/30/18 11:15 11/30/18 11:16 DC 11/30/18 11:13 Ondansetron HCl (Zofran) 4 mg 1X ONCE IV 11/30/18 11:15 11/30/18 11:16 DC 11/30/18 11:13 Iohexol (Omnipaque 350 Mg/ml) 90 ml 1X ONCE IV 11/30/18 11:30 11/30/18 11:31 DC 11/30/18 11:41 Prochlorperazine Edisylate (Compazine) 10 mg TID PRN PRN IV NAUSEA 11/30/18 13:00 11/30/18 13:02 ALLERGIES ALLERGIES: Coded Allergies: No Known Drug Allergies (Unverified , 11/30/18) ROS Review of System 14 point ROS evaluated with pertinent positives noted per HPI PHYSICAL EXAM General: Alert, Oriented X3, Cooperative, No acute distress HEENT: Atraumatic, Mucous membr. moist/pink Lungs: Clear to auscultation, Normal air movement Heart: Regular rate (SR), Normal S1, Normal S2, No murmurs Abdomen: Soft, No tenderness Extremities: No cyanosis, No edema Skin: No breakdown, No significant lesion Neuro: Normal speech, Sensation intact Psych/Mental Status: Mental status NL, Mood NL MUSCULOSKELETAL: Osteoarthritic changes both hands VITALS VITALS Vital Signs Date Time Temp Pulse Resp B/P (MAP) Pulse Ox O2 Delivery O2 Flow Rate FiO2 11/30/18 15:10 Room Air 11/30/18 14:01 97.6 78 18 178/97 (124) 99 97.6 LABS Lab: Laboratory Tests Test 11/30/18 10:34 11/30/18 10:40 11/30/18 12:50 11/30/18 13:30 Glucose (Fingerstick) 148 mg/dL (70-99) White Blood Count 15.6 x10^3/uL (4.0-11.0) Red Blood Count 4.69 x10^6/uL (4.30-5.70) Hemoglobin 15.4 g/dL (13.0-17.5) Hematocrit 44.2 % (39.0-53.0) Mean Corpuscular Volume 94 fL (79-100) Mean Corpuscular Hemoglobin 33 pg (25-35) Mean Corpuscular Hemoglobin Concent 35 g/dL (31-37) Red Cell Distribution Width 12.7 % (11.5-14.5) Platelet Count 313 x10^3/uL (140-400) Neutrophils (%) (Auto) 61 % (31-73) Lymphocytes (%) (Auto) 25 % (24-48) Monocytes (%) (Auto) 12 % (0-9) Eosinophils (%) (Auto) 2 % (0-3) Basophils (%) (Auto) 1 % (0-3) Neutrophils # (Auto) 9.5 x10^3uL (1.8-7.7) Lymphocytes # (Auto) 3.9 x10^3/uL (1.0-4.8) Monocytes # (Auto) 1.8 x10^3/uL (0.0-1.1) Eosinophils # (Auto) 0.3 x10^3/uL (0.0-0.7) Basophils # (Auto) 0.2 x10^3/uL (0.0-0.2) Prothrombin Time 12.1 SEC (11.7-14.0) Prothromb Time International Ratio 0.9 (0.8-1.1) Sodium Level 135 mmol/L (136-145) Potassium Level 3.5 mmol/L (3.5-5.1) Chloride Level 98 mmol/L (98-107) Carbon Dioxide Level 22 mmol/L (21-32) Anion Gap 15 (6-14) Blood Urea Nitrogen 11 mg/dL (8-26) Creatinine 0.9 mg/dL (0.7-1.3) Estimated GFR (Cockcroft-Gault) 87.6 BUN/Creatinine Ratio 12 (6-20) Glucose Level 151 mg/dL (70-99) Calcium Level 8.7 mg/dL (8.5-10.1) Magnesium Level 1.9 mg/dL (1.8-2.4) Total Bilirubin 0.7 mg/dL (0.2-1.0) Aspartate Amino Transf (AST/SGOT) 20 U/L (15-37) Alanine Aminotransferase (ALT/SGPT) 30 U/L (16-63) Alkaline Phosphatase 88 U/L (46-116) Creatine Kinase 258 U/L (39-308) Creatine Kinase MB (Mass) 3.3 ng/mL (0.0-3.6) Creatine Kinase MB Relative Index 1.3 % (0-4) Troponin I Quantitative < 0.017 ng/mL (0.000-0.055) < 0.017 ng/mL (0.000-0.055) LP-Hgh-N-Type Natriuretic Peptide 130 pg/mL (0-124) Total Protein 8.0 g/dL (6.4-8.2) Albumin 3.8 g/dL (3.4-5.0) Albumin/Globulin Ratio 0.9 (1.0-1.7) Lipase 173 U/L (73-393) Thyroid Stimulating Hormone (TSH) 2.224 uIU/mL (0.358-3.74) Urine Collection Type Unknown Urine Color Yellow Urine Clarity Clear Urine pH 7.0 Urine Specific [place] >=1.030 Urine Protein Negative mg/dL (NEG-TRACE) Urine Glucose (UA) Negative mg/dL (NEG) Urine Ketones (Stick) Negative mg/dL (NEG) Urine Blood Negative (NEG) Urine Nitrite Negative (NEG) Urine Bilirubin Negative (NEG) Urine Urobilinogen Dipstick 0.2 mg/dL (0.2 mg/dL) Urine Leukocyte Esterase Negative (NEG) Urine RBC 0 /HPF (0-2) Urine WBC 0 /HPF (0-4) Urine Bacteria 0 /HPF (0-FEW) Urine Hyaline Casts Few /HPF Urine Mucus Slight /LPF Urine Opiates Screen Neg (NEG) Urine Methadone Screen Neg (NEG) Urine Barbiturates Neg (NEG) Urine Phencyclidine Screen Neg (NEG) Urine Amphetamine/Methamphetamine Neg (NEG) Urine Benzodiazepines Screen Neg (NEG) Urine Cocaine Screen Neg (NEG) Urine Cannabinoids Screen Neg (NEG) Urine Ethyl Alcohol Neg (NEG) ASSESSMENT/PLAN ASSESSMENT/PLAN 1. Syncope: suspect vasovagal with underlying dehydration and BP med use. Doubt arrhythmia. 2. Leukocytosis: ?interstitial PNA defer to PCP 3. HTN: labile 4. HLP 5. Obesity 6. Tobaccoism with undiagnosed COPD Recommendations 1. IVF given, push po fluids. Educated in regards to BP meds and hydration and meal adequacy 2. Resume BP meds and statin 3. TTE, TSH. 4. Monitor rhythm overnight. 5 Smoking cessation АНДРЕЙ RAMÍREZ MD 11/30/18 1711: CARDIAC CONSULT ASSESSMENT/PLAN ASSESSMENT/PLAN Pt. seen and examined. 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 Supportive care. EKG/trop negative. CTA negative. Exam unremarkable. Await echo. Ok to DC tomorrow. Thanks RASHI COSTA APRN Nov 30, 2018 15:59 АНДРЕЙ RAMÍREZ MD Nov 30, 2018 17:11
--- NOTE | 2018-11-30 16:01 | EKG ---
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
[2018-11-30] MEDS ORDERED: POTASSIUM CHLORIDE 20 MEQ TABLET.ER. PO ONE (16:15)
[2018-11-30] MEDS: hydroCHLOROthiazide 25 MG TABLET PO SCH (16:30)
[2018-11-30] MEDS: LISINOPRIL 20 MG TABLET PO SCH (16:30)
[2018-11-30] MEDS: ATENOLOL 50 MG TABLET. PO SCH (16:30)
[2018-11-30] MEDS: ATORVASTATIN CALCIUM 20 MG TABLET PO SCH (16:30)
[2018-11-30] MEDS ORDERED: hydrALAZINE 20 MG/ML VIAL. IVP PRN (16:30)
[2018-11-30] MEDS ORDERED: ZOLPIDEM 5 MG TABLET. PO PRN (17:00)
[2018-11-30] MEDS: amLODIPine BESYLATE 5 MG TABLET PO SCH (17:02)
[2018-11-30 19:35] VITALS: BP 142/75
[2018-11-30 23:16] VITALS: BP 168/80
[2018-11-30 23:19] VITALS: BP 168/80
[2018-12-01 03:17] VITALS: BP 142/55
[2018-12-01 07:00] VITALS: BP 131/75
[2018-12-01] MEDS: hydroCHLOROthiazide 25 MG TABLET PO SCH (09:33)
[2018-12-01] MEDS: ATORVASTATIN CALCIUM 20 MG TABLET PO SCH (09:33)
[2018-12-01] MEDS: amLODIPine BESYLATE 5 MG TABLET PO SCH (09:34)
[2018-12-01] MEDS: ATENOLOL 50 MG TABLET. PO SCH (09:34)
[2018-12-01 09:35] VITALS: BP 131/75
[2018-12-01] MEDS: LISINOPRIL 20 MG TABLET PO SCH (09:35)
--- NOTE | 2018-12-01 09:37 | CARD ---
MR#: [id number] Date of Study: 12/01/2018 Ordering Physician: RASHI COSTA, Referring Physician: TITA TENORIO Tech: Dior Figueroa RDCS APPROVED REPORT EXAM: Two-dimensional and M-mode echocardiogram with Doppler and color Doppler. Other Information Quality : Good INDICATION Abnormal ECG 2D DIMENSIONS RVDd2.3 (2.9-3.5cm)Left Atrium(2D)3.3 (1.6-4.0cm) IVSd0.9 (0.7-1.1cm)Aortic Root(2D)2.8 (2.0-3.7cm) LVDd5.6 (3.9-5.9cm)LVOT Diameter2.0 (1.8-2.4cm) PWd0.9 (0.7-1.1cm)LVDs3.1 (2.5-4.0cm) FS (%) 30.0 %SV113.8 ml LVEF(%)60.0 (>50%) Aortic Valve AoV Peak Davy.141.2cm/sAoV VTI32.2cm AO Peak GR.8.0mmHgLVOT Peak Davy.126.9cm/s LVOT VTI 29.56cmAO Mean GR.4mmHg JESSY (VMAX)2.25eh2DBS (VTI)2.88cm2 Mitral Valve MV E Yebwuime13.1cm/sMV DECEL FGRK109gy MV A Ojotrwbd46.2cm/sMV TDV96lo E/A Ratio1.4MVA (PHT)3.07cm2 TDI E/Lateral E'8.2E/Medial E'9.6 Tricuspid Valve TR P. Tspowcqx373hb/sRAP ZEXKCNAR4gyOl TR Peak Gr.18qzZwOOUM87zuWh Pulmonary Vein S1 Bqpqiddb33.3cm/sD2 Lzgszwjj60.8cm/s LEFT VENTRICLE The left ventricle is normal size. There is normal left ventricular wall thickness. The left ventricu lar systolic function is normal and the ejection fraction is within normal range. The Ejection Fracti on is 55-60%. There is normal LV segmental wall motion. Transmitral Doppler flow pattern is Grade I-a bnormal relaxation pattern. RIGHT VENTRICLE The right ventricle is normal size. The right ventricular systolic function is normal. ATRIA The left atrium size is normal. The right atrium size is normal. The interatrial septum is intact wit h no evidence for an atrial septal defect or patent foramen ovale as noted on 2-D or Doppler imaging. AORTIC VALVE The aortic valve is calcified but opens well. Doppler and Color Flow revealed no significant aortic r egurgitation. There is no significant aortic valvular stenosis. MITRAL VALVE The mitral valve is calcified but opens well. There is no evidence of mitral valve prolapse. There is no mitral valve stenosis. Doppler and Color Flow revealed no mitral valve regurgitation noted. TRICUSPID VALVE The tricuspid valve is normal in structure and function. Doppler and Color Flow revealed trace to mil d tricuspid regurgitation. The PA pressure was estimated at 36 mmHg. There is no tricuspid valve sten osis. PULMONIC VALVE The pulmonic valve is not well visualized. Doppler and Color Flow revealed no pulmonic valvular regur gitation. There is no pulmonic valvular stenosis. GREAT VESSELS The aortic root is normal in size. The ascending aorta is not well seen. The IVC is normal in size an d collapses >50% with inspiration. PERICARDIAL EFFUSION There is no evidence of significant pericardial effusion. Critical Notification Critical Value: No <Conclusion> The left ventricular systolic function is normal and the ejection fraction is within normal range. Th e Ejection Fraction is 55-60%. There is normal LV segmental wall motion. Signed by : Jeremy Rosales, Electronically Approved : 12/01/2018 09:37:15
--- NOTE | 2018-12-01 09:54 | PDOC ---
CARDIO Progress Notes Date and Time Date of Service 12/01/2018 Time of Evaluation 0950 Subjective Subjective: No Chest Pain, No shortness of breath, No Palpitations Vitals Vitals Vital Signs Date Time Temp Pulse Resp B/P (MAP) Pulse Ox O2 Delivery O2 Flow Rate FiO2 12/01/18 09:35 74 131/75 12/01/18 08:00 Room Air 12/01/18 07:00 98.1 18 95 98.1 Weight Weight [ ] Input and Output Intake and Output Intake and Output 12/01/18 06:59 Intake Total 1000 ml Balance 1000 ml Intake Oral 1000 ml # Voids 2 Laboratory Labs Laboratory Tests Test 11/30/18 10:34 11/30/18 10:40 11/30/18 12:50 11/30/18 13:30 Glucose (Fingerstick) 148 mg/dL (70-99) White Blood Count 15.6 x10^3/uL (4.0-11.0) Red Blood Count 4.69 x10^6/uL (4.30-5.70) Hemoglobin 15.4 g/dL (13.0-17.5) Hematocrit 44.2 % (39.0-53.0) Mean Corpuscular Volume 94 fL (79-100) Mean Corpuscular Hemoglobin 33 pg (25-35) Mean Corpuscular Hemoglobin Concent 35 g/dL (31-37) Red Cell Distribution Width 12.7 % (11.5-14.5) Platelet Count 313 x10^3/uL (140-400) Neutrophils (%) (Auto) 61 % (31-73) Lymphocytes (%) (Auto) 25 % (24-48) Monocytes (%) (Auto) 12 % (0-9) Eosinophils (%) (Auto) 2 % (0-3) Basophils (%) (Auto) 1 % (0-3) Neutrophils # (Auto) 9.5 x10^3uL (1.8-7.7) Lymphocytes # (Auto) 3.9 x10^3/uL (1.0-4.8) Monocytes # (Auto) 1.8 x10^3/uL (0.0-1.1) Eosinophils # (Auto) 0.3 x10^3/uL (0.0-0.7) Basophils # (Auto) 0.2 x10^3/uL (0.0-0.2) Prothrombin Time 12.1 SEC (11.7-14.0) Prothromb Time International Ratio 0.9 (0.8-1.1) Sodium Level 135 mmol/L (136-145) Potassium Level 3.5 mmol/L (3.5-5.1) Chloride Level 98 mmol/L (98-107) Carbon Dioxide Level 22 mmol/L (21-32) Anion Gap 15 (6-14) Blood Urea Nitrogen 11 mg/dL (8-26) Creatinine 0.9 mg/dL (0.7-1.3) Estimated GFR (Cockcroft-Gault) 87.6 BUN/Creatinine Ratio 12 (6-20) Glucose Level 151 mg/dL (70-99) Calcium Level 8.7 mg/dL (8.5-10.1) Magnesium Level 1.9 mg/dL (1.8-2.4) Total Bilirubin 0.7 mg/dL (0.2-1.0) Aspartate Amino Transf (AST/SGOT) 20 U/L (15-37) Alanine Aminotransferase (ALT/SGPT) 30 U/L (16-63) Alkaline Phosphatase 88 U/L (46-116) Creatine Kinase 258 U/L (39-308) Creatine Kinase MB (Mass) 3.3 ng/mL (0.0-3.6) Creatine Kinase MB Relative Index 1.3 % (0-4) Troponin I Quantitative < 0.017 ng/mL (0.000-0.055) < 0.017 ng/mL (0.000-0.055) [id number]-Type Natriuretic Peptide 130 pg/mL (0-124) Total Protein 8.0 g/dL (6.4-8.2) Albumin 3.8 g/dL (3.4-5.0) Albumin/Globulin Ratio 0.9 (1.0-1.7) Lipase 173 U/L (73-393) Thyroid Stimulating Hormone (TSH) 2.224 uIU/mL (0.358-3.74) Urine Collection Type Unknown Urine Color Yellow Urine Clarity Clear Urine pH 7.0 Urine Specific [place] >=1.030 Urine Protein Negative mg/dL (NEG-TRACE) Urine Glucose (UA) Negative mg/dL (NEG) Urine Ketones (Stick) Negative mg/dL (NEG) Urine Blood Negative (NEG) Urine Nitrite Negative (NEG) Urine Bilirubin Negative (NEG) Urine Urobilinogen Dipstick 0.2 mg/dL (0.2 mg/dL) Urine Leukocyte Esterase Negative (NEG) Urine RBC 0 /HPF (0-2) Urine WBC 0 /HPF (0-4) Urine Bacteria 0 /HPF (0-FEW) Urine Hyaline Casts Few /HPF Urine Mucus Slight /LPF Urine Opiates Screen Neg (NEG) Urine Methadone Screen Neg (NEG) Urine Barbiturates Neg (NEG) Urine Phencyclidine Screen Neg (NEG) Urine Amphetamine/Methamphetamine Neg (NEG) Urine Benzodiazepines Screen Neg (NEG) Urine Cocaine Screen Neg (NEG) Urine Cannabinoids Screen Neg (NEG) Urine Ethyl Alcohol Neg (NEG) Physical Exam HEENT: Neck Supple W Full Motion Chest: Symmetric LUNGS: Clear to Auscultation Heart: S1S2, RRR (SR) Abdomen: Soft N/T Extremities: No Edema, No Calf Tenderness Neurology: alert, oriented, follow commands Assessment Assessment 1. Syncope: suspect vasovagal with underlying dehydration and BP med use. doubt arrhythmias. No ectopies overnight 2. HTN: controlled. Ef and WM nml 3. HLP 4. Obesity 5. Tobaccoism with undiagnosed COPD 6. Grief: pt sister today Recommendations 1. Discussed with pt to call if any further episodes to which event monitor will be considered, 2. Continue home BP meds and statin 3 Smoking cessation RASHI COSTA APRN Dec 01, 2018 09:54
--- NOTE | 2018-12-01 10:12 | NUR ---
Discharge Note: CHUN STERLING [address] Discharge instructions and discharge home medications reviewed with Patient and a copy given. All questions have been answered and understanding verbalized. Pt's sister this AM while in this hospital. Pt is requesting to be escorted up to the 5th floor to be with family. Pt escorted by staff to 5th floor. Discharge papers in hand.
--- NOTE | 2018-12-01 10:19 | PDOC3 ---
Discharge Summary Visit Information Date of Admission: Nov 30, 2018 Date of Discharge: Dec 01, 2018 Admitting Diagnosis: syncope Final Diagnosis 1. Syncope: vasovagal 2. HTN: controlled. 3. HLP 4. Obesity, BMI 32 5. Tobaccoism 6. adjustment disorder and acute Grief reaction Problems Medical Problems: (1) Abnormal EKG Status: Acute (2) Syncope Status: Acute Brief Hospital Course Allergies Allergies Coded Allergies Type Severity Reaction Last Updated Verified No Known Drug Allergies 11/30/18 No Vital Signs Vital Signs Date Time Temp Pulse Resp B/P (MAP) Pulse Ox O2 Delivery O2 Flow Rate FiO2 12/01/18 09:35 74 131/75 12/01/18 08:00 Room Air 12/01/18 07:00 98.1 18 95 98.1 Lab Results Laboratory Tests Test 11/30/18 10:34 11/30/18 10:40 11/30/18 12:50 11/30/18 13:30 Glucose (Fingerstick) 148 mg/dL (70-99) White Blood Count 15.6 x10^3/uL (4.0-11.0) Red Blood Count 4.69 x10^6/uL (4.30-5.70) Hemoglobin 15.4 g/dL (13.0-17.5) Hematocrit 44.2 % (39.0-53.0) Mean Corpuscular Volume 94 fL (79-100) Mean Corpuscular Hemoglobin 33 pg (25-35) Mean Corpuscular Hemoglobin Concent 35 g/dL (31-37) Red Cell Distribution Width 12.7 % (11.5-14.5) Platelet Count 313 x10^3/uL (140-400) Neutrophils (%) (Auto) 61 % (31-73) Lymphocytes (%) (Auto) 25 % (24-48) Monocytes (%) (Auto) 12 % (0-9) Eosinophils (%) (Auto) 2 % (0-3) Basophils (%) (Auto) 1 % (0-3) Neutrophils # (Auto) 9.5 x10^3uL (1.8-7.7) Lymphocytes # (Auto) 3.9 x10^3/uL (1.0-4.8) Monocytes # (Auto) 1.8 x10^3/uL (0.0-1.1) Eosinophils # (Auto) 0.3 x10^3/uL (0.0-0.7) Basophils # (Auto) 0.2 x10^3/uL (0.0-0.2) Prothrombin Time 12.1 SEC (11.7-14.0) Prothromb Time International Ratio 0.9 (0.8-1.1) Sodium Level 135 mmol/L (136-145) Potassium Level 3.5 mmol/L (3.5-5.1) Chloride Level 98 mmol/L (98-107) Carbon Dioxide Level 22 mmol/L (21-32) Anion Gap 15 (6-14) Blood Urea Nitrogen 11 mg/dL (8-26) Creatinine 0.9 mg/dL (0.7-1.3) Estimated GFR (Cockcroft-Gault) 87.6 BUN/Creatinine Ratio 12 (6-20) Glucose Level 151 mg/dL (70-99) Calcium Level 8.7 mg/dL (8.5-10.1) Magnesium Level 1.9 mg/dL (1.8-2.4) Total Bilirubin 0.7 mg/dL (0.2-1.0) Aspartate Amino Transf (AST/SGOT) 20 U/L (15-37) Alanine Aminotransferase (ALT/SGPT) 30 U/L (16-63) Alkaline Phosphatase 88 U/L (46-116) Creatine Kinase 258 U/L (39-308) Creatine Kinase MB (Mass) 3.3 ng/mL (0.0-3.6) Creatine Kinase MB Relative Index 1.3 % (0-4) Troponin I Quantitative < 0.017 ng/mL (0.000-0.055) < 0.017 ng/mL (0.000-0.055) BL-Yzr-[id number]-Type Natriuretic Peptide 130 pg/mL (0-124) Total Protein 8.0 g/dL (6.4-8.2) Albumin 3.8 g/dL (3.4-5.0) Albumin/Globulin Ratio 0.9 (1.0-1.7) Lipase 173 U/L (73-393) Thyroid Stimulating Hormone (TSH) 2.224 uIU/mL (0.358-3.74) Urine Collection Type Unknown Urine Color Yellow Urine Clarity Clear Urine pH 7.0 Urine Specific [place] >=1.030 Urine Protein Negative mg/dL (NEG-TRACE) Urine Glucose (UA) Negative mg/dL (NEG) Urine Ketones (Stick) Negative mg/dL (NEG) Urine Blood Negative (NEG) Urine Nitrite Negative (NEG) Urine Bilirubin Negative (NEG) Urine Urobilinogen Dipstick 0.2 mg/dL (0.2 mg/dL) Urine Leukocyte Esterase Negative (NEG) Urine RBC 0 /HPF (0-2) Urine WBC 0 /HPF (0-4) Urine Bacteria 0 /HPF (0-FEW) Urine Hyaline Casts Few /HPF Urine Mucus Slight /LPF Urine Opiates Screen Neg (NEG) Urine Methadone Screen Neg (NEG) Urine Barbiturates Neg (NEG) Urine Phencyclidine Screen Neg (NEG) Urine Amphetamine/Methamphetamine Neg (NEG) Urine Benzodiazepines Screen Neg (NEG) Urine Cocaine Screen Neg (NEG) Urine Cannabinoids Screen Neg (NEG) Urine Ethyl Alcohol Neg (NEG) Laboratory Tests Test 11/30/18 10:34 11/30/18 10:40 11/30/18 12:50 11/30/18 13:30 Glucose (Fingerstick) 148 mg/dL (70-99) White Blood Count 15.6 x10^3/uL (4.0-11.0) Red Blood Count 4.69 x10^6/uL (4.30-5.70) Hemoglobin 15.4 g/dL (13.0-17.5) Hematocrit 44.2 % (39.0-53.0) Mean Corpuscular Volume 94 fL (79-100) Mean Corpuscular Hemoglobin 33 pg (25-35) Mean Corpuscular Hemoglobin Concent 35 g/dL (31-37) Red Cell Distribution Width 12.7 % (11.5-14.5) Platelet Count 313 x10^3/uL (140-400) Neutrophils (%) (Auto) 61 % (31-73) Lymphocytes (%) (Auto) 25 % (24-48) Monocytes (%) (Auto) 12 % (0-9) Eosinophils (%) (Auto) 2 % (0-3) Basophils (%) (Auto) 1 % (0-3) Neutrophils # (Auto) 9.5 x10^3uL (1.8-7.7) Lymphocytes # (Auto) 3.9 x10^3/uL (1.0-4.8) Monocytes # (Auto) 1.8 x10^3/uL (0.0-1.1) Eosinophils # (Auto) 0.3 x10^3/uL (0.0-0.7) Basophils # (Auto) 0.2 x10^3/uL (0.0-0.2) Prothrombin Time 12.1 SEC (11.7-14.0) Prothromb Time International Ratio 0.9 (0.8-1.1) Sodium Level 135 mmol/L (136-145) Potassium Level 3.5 mmol/L (3.5-5.1) Chloride Level 98 mmol/L (98-107) Carbon Dioxide Level 22 mmol/L (21-32) Anion Gap 15 (6-14) Blood Urea Nitrogen 11 mg/dL (8-26) Creatinine 0.9 mg/dL (0.7-1.3) Estimated GFR (Cockcroft-Gault) 87.6 BUN/Creatinine Ratio 12 (6-20) Glucose Level 151 mg/dL (70-99) Calcium Level 8.7 mg/dL (8.5-10.1) Magnesium Level 1.9 mg/dL (1.8-2.4) Total Bilirubin 0.7 mg/dL (0.2-1.0) Aspartate Amino Transf (AST/SGOT) 20 U/L (15-37) Alanine Aminotransferase (ALT/SGPT) 30 U/L (16-63) Alkaline Phosphatase 88 U/L (46-116) Creatine Kinase 258 U/L (39-308) Creatine Kinase MB (Mass) 3.3 ng/mL (0.0-3.6) Creatine Kinase MB Relative Index 1.3 % (0-4) Troponin I Quantitative < 0.017 ng/mL (0.000-0.055) < 0.017 ng/mL (0.000-0.055) GU-Zsh-F-Type Natriuretic Peptide 130 pg/mL (0-124) Total Protein 8.0 g/dL (6.4-8.2) Albumin 3.8 g/dL (3.4-5.0) Albumin/Globulin Ratio 0.9 (1.0-1.7) Lipase 173 U/L (73-393) Thyroid Stimulating Hormone (TSH) 2.224 uIU/mL (0.358-3.74) Urine Collection Type Unknown Urine Color Yellow Urine Clarity Clear Urine pH 7.0 Urine Specific [place] >=1.030 Urine Protein Negative mg/dL (NEG-TRACE) Urine Glucose (UA) Negative mg/dL (NEG) Urine Ketones (Stick) Negative mg/dL (NEG) Urine Blood Negative (NEG) Urine Nitrite Negative (NEG) Urine Bilirubin Negative (NEG) Urine Urobilinogen Dipstick 0.2 mg/dL (0.2 mg/dL) Urine Leukocyte Esterase Negative (NEG) Urine RBC 0 /HPF (0-2) Urine WBC 0 /HPF (0-4) Urine Bacteria 0 /HPF (0-FEW) Urine Hyaline Casts Few /HPF Urine Mucus Slight /LPF Urine Opiates Screen Neg (NEG) Urine Methadone Screen Neg (NEG) Urine Barbiturates Neg (NEG) Urine Phencyclidine Screen Neg (NEG) Urine Amphetamine/Methamphetamine Neg (NEG) Urine Benzodiazepines Screen Neg (NEG) Urine Cocaine Screen Neg (NEG) Urine Cannabinoids Screen Neg (NEG) Urine Ethyl Alcohol Neg (NEG) Brief Hospital Course Mr. Calloway is a 53 old admit after a syncope event when seated/. He was visiting his ailing sister here in hospital when event happened, likely vagal from story CV team Discussed with pt to call if any further episodes to which event monitor will be considered, recommended Smoking cessation Discharge Information Condition at Discharge: Improved Follow Up: Weeks Disposition/Orders: D/C to Home Scheduled Atorvastatin Calcium (Atorvastatin Calcium) 20 Mg Tablet, 1 TAB PO DAILY for High cholestrol , #30 Ref 5 (Reported) Entered as Reported by: DARON LOMAS on 11/30/181434 Last Taken: Unknown Dose on Unknown Date & Time Last Action: Continued on 11/30/181539 by TITA TENORIO Bisoprolol Fumarate/Hctz (Bisoprolol-Hctz 10-6.25 Mg Tab) 1 Each Tablet, 1 TAB PO DAILY for HTN, #30 Ref 5 (Reported) Entered as Reported by: DARON LOMAS on 11/30/181434 Last Taken: Unknown Dose on Unknown Date & Time Last Action: Converted on 11/30/181539 by TITA TENORIO Lisinopril (Lisinopril) 40 Mg Tablet, 1 TAB PO DAILY for HTN, #30 Ref 5 (Reported) Entered as Reported by: DARON LOMAS on 11/30/18 1435 Last Taken: Unknown Dose on Unknown Date & Time Last Action: Continued on 11/30/18 1540 by TITA TENORIO Patient Instructions Patient Instructions < 30 min TITA TENORIO MD Dec 01, 2018 10:19
== END 2018-12-01 10:15 | disposition home or self-care (01) | DRG 312 ==
LOC: ER 10:26 → 2 SOUTH 12:32 → ER 13:45
PROVIDERS: ADMIT Internal Medicine; ATTEND Internal Medicine
DX: R55 Syncope and collapse (principal); J98.11 Atelectasis; M19.90 Unspecified osteoarthritis, unspecified site; I10 Essential (primary) hypertension; E78.5 Hyperlipidemia, unspecified; F17.210 Nicotine dependence, cigarettes, uncomplicated; F43.20 Adjustment disorder, unspecified; E66.9 Obesity, unspecified; Z68.32 Body mass index [BMI] 32.0-32.9, adult; Z82.5 Family history of asthma and other chronic lower respiratory diseases; Z82.49 Family history of ischemic heart disease and other diseases of the circulatory system
CPT/HCPCS: 36415; 70450; 71045; 71275; 80053; 80307; 81001; 82553; 82962; 83690; 83735; 83880; 84443; 84484; 85025; 85610; 93005; 93306; J0780; J2405; J7030; J8597; Q9967; 99285-25